=== PATIENT | female | born 1955 | race Caucasian/White ===

== ENCOUNTER 2017-02-08 17:14 | Emergency (ER) | payer OTHER ==
[~2017-02-08] VITALS: Ht 172.7 cm; Wt 63.5 kg
[~2017-02-08 17:14] MED LIST: CITA40TA11
--- NOTE | 2017-02-08 17:57 | NUR ---
PT CAME IN FOR N/V POSSIBLE DIARRHEA, GONZALEZ 1 HR CREDIT COLLECTIONS MANAGER. ACTIVELY THROWING UP. IV ACCESS STARTED. VSS. SAFETY AND COMFORT MEASURES PROVIDED. WILL MONITOR.
[2017-02-08] MEDS ORDERED: METOCLOPRAMIDE HCL 10 MG/2 ML VIAL IV ONE (18:00)
[2017-02-08] MEDS ORDERED: IV NS 0.9% 1,000 ML BAG IV ONE (18:00)
[2017-02-08] MEDS ORDERED: KETOROLAC TROMETHAMINE INJ 30 MG/ML VIAL IV ONE ×2 (18:00→19:00)
--- NOTE | 2017-02-08 18:00 | NUR ---
PT MEDICATED ORDERED.
[2017-02-08] MEDS ORDERED: IV NS 0.9% 1,000 ML ONE (18:02)
[2017-02-08] MEDS ORDERED: IV SET PRIMARY PUMP SET 1 EA INFUS.SET MC ONE (18:02)
[2017-02-08] MEDS ORDERED: ONDANSETRON HCL/PF 4 MG/2 ML VIAL ONE (18:02)
[2017-02-08 18:05] LABS: BASOPHILS # (AUTO) 0.1 /CMM (0.0-0.2); BASOPHILS % (AUTO) 0.7 % (0.0-2.0); EOSINOPHILS # (AUTO) 0.3 /CMM (0.0-0.7); EOSINOPHILS % (AUTO) 2.7 % (0.0-6.0); HEMATOCRIT 44 % (33-45); HEMOGLOBIN 15.1 g/dL (11.5-14.8); LYMPHOCYTES # (AUTO) 3.8 /CMM (0.8-4.8); LYMPHOCYTES % (AUTO) 36.8 % (20.0-44.0); MEAN CORPUSCULAR HEMOGLOBIN 30 PG (26.0-33.0); MEAN CORPUSCULAR HGB CONC 34 g/dl (31.0-36.0); MEAN CORPUSCULAR VOLUME 86 fL (82-100); MONOCYTES # (AUTO) 0.7 /CMM (0.1-1.30); MONOCYTES % (AUTO) 6.9 % (2.0-12.0); NEUTROPHILS # (AUTO) 5.5 /CMM (1.8-8.9); NEUTROPHILS % (AUTO) 52.9 % (43.0-81.0); PLATELET COUNT (AUTO) 317 /CMM (150-450); RDW COEFFICIENT OF VARIATION 12.8 (11.5-15.0); RED BLOOD CELL COUNT(AUTO) 5.13 MIL/uL (4.0-5.2); WHITE BLOOD COUNT (AUTO) 10.4 K/uL (4.3-11.0)
[2017-02-08 18:12] LABS: CALCIUM, SERUM 9.1 mg/dL (8.5-10.1); CARBON DIOXIDE 24 mmol/L (21-32); CHLORIDE 105 mmol/L (98-107); GFR 56 mL/min (>60); GLUCOSE 135 mg/dL (74-106); POTASSIUM 3.4 mmol/L (3.5-5.1); SODIUM SERUM 140 mmol/L (136-145); UREA NITROGEN, BLOOD 13 mg/dL (7-18)
[2017-02-08 18:20] LABS: TROPONIN I < 0.017 ng/mL (0.00-0.056)
--- NOTE | 2017-02-08 18:50 | NUR ---
URINE SAMPLE OBTAINED.
[2017-02-08 18:55] LABS: APPEARANCE,URINE Clear (CLEAR); BILIRUBIN,URINE Negative (NEGATIVE); BLOOD, URINE Moderate Ery/uL (NEGATIVE); COLOR,URINE Yellow (YELLOW); KETONES,URINE Negative (NEGATIVE); LEUKOCYTE ESTERASE ,URINE Negative (NEGATIVE); NITRITE, URINE Negative (NEGATIVE); PROTEIN,URINE Negative (NEGATIVE); UGLUCOSE Negative (NEGATIVE); UROBILINOGEN,URINE 0.2 EU/dL (0.2)
--- NOTE | 2017-02-08 19:21 | NUR ---
REPORT RECEIVED FROM GERARDO MTZ.
[2017-02-08 19:24] LABS: ADD URINE CULTURE NO; BACTERIA,URINE None seen /HPF (None Seen); SQUAMOUS EPITHELIAL CELL,UR Few /HPF (None Seen); WBC,URINE 0-2 /HPF (0-3)
--- NOTE | 2017-02-08 20:28 | NUR ---
IV removed. Catheter intact and site benign. Pressure and 4x4 applied to site. No bleeding noted. Patient discharged to home in stable condition. Written and verbal after care instructions given. Patient verbalizes understanding of instruction. ambulatory with a steady gait. instructed pt not to drive. pt verbalize understanding.
[2017-02-08 20:29] VITALS: BP 142/78
== END 2017-02-08 20:30 | disposition home or self-care (01) ==
LOC: ER 17:16
DX: G43.909 Migraine, unspecified, not intractable, without status migrainosus (principal); F32.9 Major depressive disorder, single episode, unspecified; R11.2 Nausea with vomiting, unspecified; Z85.3 Personal history of malignant neoplasm of breast; Z90.10 Acquired absence of unspecified breast and nipple
CPT/HCPCS: 36415; 70450-TC; 80048-TC; 81000-TC; 84484-TC; 85025-TC; A4606; J1885; J2405; J7030; Z7610

== ENCOUNTER 2017-06-13 15:57 | Emergency (ER) | payer OTHER ==
[~2017-06-13] VITALS: Ht 172.7 cm; Wt 65.8 kg
--- NOTE | 2017-06-13 16:20 | NUR ---
PATIENT ARRIVED TO ER C/O LLE PAIN. STATING SHE FEELS A BUMP AROUND POPLITEAL FOSSA. PATIENT IS A/OX 4. BREATHING EVEN AND UNLABORED. NO SOB. VITALS STABLE. SAFETY AND COMFORT MEASURES IN PLACE. AWAITING MD ORDERS.
--- NOTE | 2017-06-13 16:40 | NUR ---
US TECH AT BEDSIDE.
--- NOTE | 2017-06-13 17:15 | NUR ---
PATIENTS LEFT KNEE WRAPPED WITH 3 INCH SHILOH WRAP BY EMT
--- NOTE | 2017-06-13 17:31 | NUR ---
Patient discharged to home in stable condition. Written and verbal after care instructions given. Patient verbalizes understanding of instruction.
[2017-06-13 17:33] VITALS: BP 169/72
== END 2017-06-13 17:33 | disposition home or self-care (01) ==
LOC: ER 16:00
DX: M71.22 Synovial cyst of popliteal space [Baker], left knee (principal); F32.9 Major depressive disorder, single episode, unspecified; M79.89 Other specified soft tissue disorders; Z85.3 Personal history of malignant neoplasm of breast; G43.909 Migraine, unspecified, not intractable, without status migrainosus; Z98.890 Other specified postprocedural states
CPT/HCPCS: 93971-TC; A4606; Z7610

== ENCOUNTER 2025-09-04 12:56 | Emergency (ER) | payer OTHER ==
[~2025-09-04] VITALS: Ht 175.3 cm; Wt 59.9 kg
[2025-09-04] MEDS ORDERED: METOCLOPRAMIDE HCL 10 MG/2 ML VIAL ONE (14:54)
[2025-09-04] MEDS: METOCLOPRAMIDE HCL 10 MG/2 ML VIAL IV ONE (15:11)
[2025-09-04] MEDS: IV NS 0.9% 1,000 ML BAG IV ONE (15:11)
[2025-09-04 16:30] VITALS: BP 130/82; TEMP 98.2; O2SAT 100
== END 2025-09-04 16:31 | disposition home or self-care (01) ==
LOC: ER 12:58
DX: G43.909 Migraine, unspecified, not intractable, without status migrainosus (principal); F32.A Depression, unspecified; Z41.1 Encounter for cosmetic surgery; Z78.0 Asymptomatic menopausal state; Z85.3 Personal history of malignant neoplasm of breast; Z90.13 Acquired absence of bilateral breasts and nipples
CPT/HCPCS: 99284; 96374; 96361; 96375; J1200; J2765; J7030